=== PATIENT | male | born 1960 | race Caucasian/White ===

== ENCOUNTER → 2024-05-06 14:43 | Outpatient (REF) | payer OTHER, SELFPAY | LOC: EMG 14:43 | PROVIDERS: ATTENDING PHYSICIAN Nurse Practitioner Primary Care | DX: R29.898 Other symptoms and signs involving the musculoskeletal system (principal); M79.641 Pain in right hand; M79.642 Pain in left hand; R20.0 Anesthesia of skin | CPT/HCPCS: 95886; 95911 ==

== ENCOUNTER → 2024-05-11 10:48 | Outpatient (REF) | payer OTHER, SELFPAY | LOC: RAD 10:48 | PROVIDERS: ATTENDING PHYSICIAN Nurse Practitioner Primary Care | DX: M79.641 Pain in right hand (principal); M79.642 Pain in left hand; M54.2 Cervicalgia | CPT/HCPCS: 72050; 73130 ==

== ENCOUNTER → 2024-06-18 06:48 | Outpatient (REF) | payer OTHER, SELFPAY | LOC: PAVMRI 06:48 | PROVIDERS: ATTENDING PHYSICIAN Nurse Practitioner Primary Care; FAMILY PHYSICIAN Internal Medicine Geriatric Medicine | DX: M50.90 Cervical disc disorder, unspecified, unspecified cervical region (principal); M47.812 Spondylosis without myelopathy or radiculopathy, cervical region; R29.898 Other symptoms and signs involving the musculoskeletal system; R29.2 Abnormal reflex; M79.641 Pain in right hand; M79.642 Pain in left hand | CPT/HCPCS: 72141 ==

== ENCOUNTER → 2024-09-01 07:02 | Outpatient (REF) | payer OTHER, SELFPAY | LOC: MRI 3T 07:02 | PROVIDERS: ATTENDING PHYSICIAN Internal Medicine Geriatric Medicine | DX: M79.641 Pain in right hand (principal) | CPT/HCPCS: 73221 ==

== ENCOUNTER → 2024-09-22 09:54 | Outpatient (REF) | payer OTHER, SELFPAY | LOC: HWRAD 09:54 | PROVIDERS: ATTENDING PHYSICIAN Internal Medicine Geriatric Medicine | DX: Z00.00 Encounter for general adult medical examination without abnormal findings (principal) | CPT/HCPCS: 76700 ==

== ENCOUNTER → 2025-01-07 09:55 | Outpatient (REF) | payer OTHER, SELFPAY | LOC: HWRAD 09:55 | PROVIDERS: ATTENDING PHYSICIAN Internal Medicine Geriatric Medicine | DX: M54.40 Lumbago with sciatica, unspecified side (principal) | CPT/HCPCS: 72202 ==

== ENCOUNTER → 2025-02-02 10:27 | Outpatient (REF) | payer OTHER, SELFPAY | LOC: HWRAD 10:27 | PROVIDERS: ATTENDING PHYSICIAN Internal Medicine Geriatric Medicine | DX: E78.2 Mixed hyperlipidemia (principal); M54.40 Lumbago with sciatica, unspecified side; M25.552 Pain in left hip; G25.0 Essential tremor; E55.9 Vitamin D deficiency, unspecified; Z13.31 Encounter for screening for depression; I11.9 Hypertensive heart disease without heart failure; E66.9 Obesity, unspecified | CPT/HCPCS: 73565 ==

== ENCOUNTER → 2025-07-25 09:43 | Outpatient (REF) | payer OTHER, SELFPAY | LOC: MRI 3T 09:43 | PROVIDERS: ATTENDING PHYSICIAN Internal Medicine Geriatric Medicine | DX: M25.562 Pain in left knee (principal); E78.2 Mixed hyperlipidemia; M54.50 Low back pain, unspecified; M25.552 Pain in left hip; G25.0 Essential tremor; E55.9 Vitamin D deficiency, unspecified; I11.9 Hypertensive heart disease without heart failure; E66.9 Obesity, unspecified; M25.541 Pain in joints of right hand; M25.542 Pain in joints of left hand; G89.29 Other chronic pain; M25.561 Pain in right knee; Z13.31 Encounter for screening for depression | CPT/HCPCS: 73721 ==